=== PATIENT | male | born 1970 | race Two or more races ===

== ENCOUNTER → 2023-11-12 | Outpatient (CLI) | payer MEDICAID ==
[~2023-11-12] MED LIST: CYCL-1 PO
== END | disposition home or self-care (01) ==
LOC: RAD 13:31
PROVIDERS: ATTEND Family Medicine
DX: M79.622 Pain in left upper arm (principal); M79.621 Pain in right upper arm; M79.601 Pain in right arm
CPT/HCPCS: 73060; 73080